=== PATIENT | male | born 1990 | race American Indian/Alaskan Native ===

== ENCOUNTER 2016-10-13 12:57 | Emergency (ER) | payer MEDICAID ==
[2016-10-13 13:45] LABS: Basophils % (Auto) 0.8 % (0.0-1.8); Eosinophils % (Auto) 0.7 % (0.0-4.3); Hematocrit 49.3 % (35.5-45.6); Hemoglobin 16.4 gm/dl (11.8-15.2); Mean Corpuscular HGB Conc 33 % (32-34); Mean Corpuscular Hemoglobin 29 pg (28-32); Mean Corpuscular Volume 86 fl (84-94); Platelet Count 213 K/mm3 (140-440); Red Blood Count 5.74 M/mm3 (3.65-5.03); Red Cell Distribution Width 13.5 % (13.2-15.2); White Blood Count 5.9 K/mm3 (4.5-11.0)
[2016-10-13 14:05] LABS: Anion Gap 17 mmol/L; BUN/Creatinine Ratio 8.18; Blood Urea Nitrogen 9 mg/dL (9-20); Calcium 9.7 mg/dL (8.4-10.2); Carbon Dioxide 29 mmol/L (22-30); Chloride 101.9 mmol/L (98-107); Glucose 74 mg/dL (75-100); Sodium 144 mmol/L (137-145)
[2016-10-13 14:18] LABS: Urine Drugs of Abuse Note Disclamer
[2016-10-13 14:38] LABS: Bacteria,Urine 1+ /HPF (Negative); Bilirubin,Urine NEG (Negative); Blood,Urine NEG (Negative); Ketones,Urine TR mg/dL (Negative); Leukocyte Esterase,Urine NEG (Negative); Mucus,Urine 3+ /HPF; Nitrite,Urine NEG (Negative)
--- NOTE | 2016-10-18 00:54 | ED Elopement Review ---
ED Pt Elopement review - Results review Lab results: Laboratory Tests 10/13/16 10/13/16 10/13/16 13:34 13:34 13:34 WBC 5.9 RBC 5.74 H Hgb 16.4 H Hct 49.3 H MCV 86 MCH 29 MCHC 33 RDW 13.5 Plt Count 213 Lymph % (Auto) 41.6 H Emery % (Auto) 7.3 Eos % (Auto) 0.7 Baso % (Auto) 0.8 Lymph # 2.5 Emery # 0.4 Eos # 0.0 Baso # 0.0 Seg Neutrophils % 49.6 Seg Neutrophils # 2.9 Sodium 144 Potassium 4.0 Chloride 101.9 Carbon Dioxide 29 Anion Gap 17 BUN 9 Creatinine 1.1 Estimated GFR > 60 BUN/Creatinine Ratio 8.18 Glucose 74 L Calcium 9.7 Urine Color Urine Turbidity Urine pH Ur Specific Waddy Urine Protein Urine Glucose (UA) Urine Ketones Urine Blood Urine Nitrite Urine Bilirubin Urine Urobilinogen Ur Leukocyte Esterase Urine WBC (Auto) Urine RBC (Auto) Urine Bacteria (Auto) Urine Mucus Urine Opiates Screen Urine Methadone Screen Ur Barbiturates Screen Ur Phencyclidine Scrn Ur Amphetamines Screen U Benzodiazepines Scrn Urine Cocaine Screen U Marijuana (THC) Screen Drugs of Abuse Note Plasma/Serum Alcohol < 0.01 10/13/16 10/13/16 14:04 14:04 WBC RBC Hgb Hct MCV MCH MCHC RDW Plt Count Lymph % (Auto) Emery % (Auto) Eos % (Auto) Baso % (Auto) Lymph # Emery # Eos # Baso # Seg Neutrophils % Seg Neutrophils # Sodium Potassium Chloride Carbon Dioxide Anion Gap BUN Creatinine Estimated GFR BUN/Creatinine Ratio Glucose Calcium Urine Color Yellow Urine Turbidity Clear Urine pH 5.0 Ur Specific Waddy 1.028 Urine Protein 30 mg/dl Urine Glucose (UA) Neg Urine Ketones Tr Urine Blood Neg Urine Nitrite Neg Urine Bilirubin Neg Urine Urobilinogen 2.0 Ur Leukocyte Esterase Neg Urine WBC (Auto) 2.0 Urine RBC (Auto) 1.0 Urine Bacteria (Auto) 1+ Urine Mucus 3+ Urine Opiates Screen Presumptive negative Urine Methadone Screen Presumptive negative Ur Barbiturates Screen Presumptive negative Ur Phencyclidine Scrn Presumptive negative Ur Amphetamines Screen Presumptive negative U Benzodiazepines Scrn Presumptive negative Urine Cocaine Screen Presumptive negative U Marijuana (THC) Screen Presumptive positive Drugs of Abuse Note Disclamer Plasma/Serum Alcohol - Call Back decision Pt Call Back Decision: No action required
== END 2016-10-13 20:30 | disposition left against medical advice (07) ==
LOC: ED 12:57
DX: Z00.8 Encounter for other general examination (principal); Z53.21 Procedure and treatment not carried out due to patient leaving prior to being seen by health care provider; Z79.899 Other long term (current) drug therapy
CPT/HCPCS: 36415; 80048; 80307; 81001; 85025; G0480; 80320